=== PATIENT | male | born 1960 | race Caucasian/White ===

== ENCOUNTER 2022-07-12 17:14 | Emergency (ER) | payer OTHER ==
[2022-07-12 18:30] VITALS: BP 154/78; PULSE 89; RESP 18; TEMP 98.3; BMI 25.8
[2022-07-12] MEDS ORDERED: KETOROLAC TROMETHAMINE 30 MG/1 ML VIAL IM ONE (19:27)
[2022-07-12] MEDS ORDERED: LIDOCAINE 5% TOPICAL PATCH TP ONE (19:28)
[2022-07-12] MEDS ORDERED: KETOROLAC TROMETHAMINE 30 MG/1 ML VIAL ONE (19:36)
[2022-07-12] MEDS ORDERED: LIDOCAINE 5% TOPICAL PATCH ONE (19:36)
[2022-07-12 21:56] LABS: BASO % 0.9 % (0-2.0); EOS % 0.7 % (0-4.5); HEMATOCRIT 37.8 % (35.4-49); HEMOGLOBIN 12.8 GM/dL (11.7-16.9); LYMPH % 16.2 % (8-40); MCH 28.1 pg (25.7-33.7); MCHC 33.8 g/dl (32.0-35.9); MEAN CELL VOLUME 83.1 fl (80-96); MEAN PLT VOLUME 8.5 fl (7.5-11.1); MONO % 5.4 % (3.8-10.2); NEUT % 76.8 % (42.8-82.8); PLATELET COUNT 340 10^3/uL (134-434); RBC 4.55 M/mm3 (4.00-5.60); RDW 13.8 % (11.9-15.9); WHITE BLOOD COUNT 16.6 K/mm3 (4.0-10.0)
[2022-07-12] MEDS ORDERED: LIDOCAINE PATCH REMOVAL MC SCH (22:00)
[2022-07-12 22:04] LABS: ALBUMIN 3.5 g/dl (3.4-5.0); BLOOD UREA NITROGEN 39.5 mg/dL (7-18); CALCIUM 8.6 mg/dL (8.5-10.1)
[2022-07-12 22:08] LABS: CREATININE 2.2 mg/dL (0.55-1.3)
[2022-07-12 22:09] LABS: BILIRUBIN,TOTAL 0.9 mg/dL (0.2-1); TOT PROT 7.2 g/dl (6.4-8.2)
== END 2022-07-12 23:07 | disposition left against medical advice (07) ==
LOC: JER 17:14
PROC: 3E0233Z Introduction of Anti-inflammatory into Muscle, Percutaneous Approach (ICD-10-PCS; principal; 2022-07-12)
DX: S80.211A Abrasion, right knee, initial encounter (principal); S80.212A Abrasion, left knee, initial encounter; M25.561 Pain in right knee; R10.9 Unspecified abdominal pain; W01.0XXA Fall on same level from slipping, tripping and stumbling without subsequent striking against object, initial encounter
CPT/HCPCS: 36415; 73564-TC-LT-FY; 73564-TC-RT-FY; 73630-TC-LT; 73630-TC-RT-FY; 74176-TC; 80053; 82962; 85025; 99284-25